=== PATIENT | female | born 1970 | race Caucasian/White ===

== ENCOUNTER 2022-02-15 15:28 | Emergency (ER) | payer BC ==
[2022-02-15 16:17] VITALS: BP 130/77; PULSE 69; RESP 18; TEMP 97.9; BMI 42.9
[2022-02-15 16:40] LABS: ALBUMIN 3.6 g/dl (3.4-5.0); BILIRUBIN,TOTAL 0.5 mg/dl (0.2-1); CALCIUM 9.1 mg/dl (8.5-10); CREATININE 0.7 mg/dl (0.55-1.3); TOT PROT 6.4 g/dl (6.4-8.2)
[2022-02-15 16:52] LABS: HEMATOCRIT 37.1 % (32.4-45.2); HEMOGLOBIN 12.8 G/dL (10.7-15.3); MCH 30.6 pg (25.7-33.7); MCHC 34.6 g/dl (32.0-36.0); MEAN CELL VOLUME 88.4 fl (80-96); MEAN PLT VOLUME 9.8 fl (7.5-11.1); PLATELET COUNT 261.5 10^3/uL (134-434); RDW 15.2 % (11.6-15.6)
[2022-02-15 18:05] LABS: VENOUS BASE EXCESS 2.9 mmol/L (-2-2); VENOUS O2 SATURATION 37.7 % (70-80); VENOUS PCO2 52.7 mmHg (38-52); VENOUS PH 7.359 (7.310-7.410)
[2022-02-15 20:08] LABS: PLATELET ESTIMATE ADEQUATE
== END 2022-02-15 18:28 | disposition home or self-care (01) ==
LOC: FER 15:28
DX: M67.472 Ganglion, left ankle and foot (principal)
CPT/HCPCS: 36415; 71275-TC; 80053; 82803; 84484; 85025; 93005; 93970-TC; 99285-25; Q9967

== ENCOUNTER 2023-10-27 07:33 | Day surgery (SDC) | payer BC ==
[2023-10-21 16:00] VITALS: BMI 42.7
[2023-10-27] MEDS ORDERED: PROPOFOL 40 ML ONE (07:55)
[2023-10-27] MEDS ORDERED: LIDOCAINE HCL/PF 2% SDV 5ML VIAL ONE (07:55)
[2023-10-27] MEDS ORDERED: ONDANSETRON 4 MG/2 ML VIAL ONE (07:55)
[2023-10-27] MEDS ORDERED: DEXAMETHASONE SOD PHOSPHATE 4 MG/1 ML VIAL ONE (07:55)
[2023-10-27] MEDS ORDERED: SUCCINYLCHOLINE CHLORIDE 200 MG/10 ML SYRINGE ONE (07:56)
[2023-10-27] MEDS ORDERED: MIDAZOLAM HCL 2 MG/2 ML SINGLE DOSE VIAL ONE ×2 (07:56→08:45)
[2023-10-27] MEDS ORDERED: EPINEPHrine 1:1,000 1,000 MCG/ML ML ONE (08:08)
[2023-10-27] MEDS ORDERED: BUPIVACAINE HCL/PF 0.25% (2.5MG/ML) 10 ML VIAL ONE (08:08)
[2023-10-27] MEDS ORDERED: FAMOTIDINE 20 MG/50 ML IVPB 20 MG/50 ML MG IVPB ONE (08:19)
[2023-10-27] MEDS ORDERED: ACETAMINOPHEN INJECTION 100 ML IVPB ONE (08:19)
[2023-10-27] MEDS ORDERED: BUPIVACAINE HCL/PF 0.5% (5MG/ML) 10 ML VIAL ONE (08:50)
[2023-10-27] MEDS ORDERED: DEXAMETHASONE SOD PHOSPHATE/PF 10 MG/ML SDV ONE (08:51)
[2023-10-27] MEDS ORDERED: ONDANSETRON 4 MG/2 ML VIAL IVPUSH PRN (10:06)
[2023-10-27] MEDS ORDERED: oxyCODONE HCL 5 MG TABLET PO PRN (10:06)
[2023-10-27] MEDS ORDERED: LACTATED RINGERS SOLUTION 1,000 ML IV SCH (10:15)
[2023-10-27 14:51] VITALS: BP 143/75; PULSE 76; RESP 19; TEMP 97.8
== END 2023-10-27 15:35 | disposition home or self-care (01) ==
LOC: FASU 07:33
PROVIDERS: ATTEND Orthopaedic Surgery Sports Medicine
PROC: 0SBC4ZZ Excision of Right Knee Joint, Percutaneous Endoscopic Approach (ICD-10-PCS; principal; 2023-10-27 09:37)
DX: S83.241A Other tear of medial meniscus, current injury, right knee, initial encounter (principal); M67.51 Plica syndrome, right knee; X58.XXXA Exposure to other specified factors, initial encounter; Y93.9 Activity, unspecified; Y92.9 Unspecified place or not applicable
CPT/HCPCS: 94760; J0131

== ENCOUNTER 2023-12-05 11:42 | Emergency (ER) | payer BC ==
[2023-12-05 12:16] VITALS: BP 153/88; PULSE 81; RESP 16; TEMP 97.9; BMI 43.4
[2023-12-05] MEDS ORDERED: ACETAMINOPHEN INJECTION 100 ML IVPB ONE (12:40)
[2023-12-05 12:47] LABS: HEMATOCRIT 39.2 % (32.4-45.2); HEMOGLOBIN 12.6 G/dL (10.7-15.3); MCH 28.8 pg (25.7-33.7); MCHC 32.1 g/dl (32.0-36.0); MEAN CELL VOLUME 89.7 fl (80-96); MEAN PLT VOLUME 9.9 fl (7.5-11.1); PLATELET COUNT 249.2 10^3/uL (134-434); RBC 4.37 10^6/uL (3.60-5.2); RDW 14.8 % (11.6-15.6); WHITE BLOOD COUNT 7.2 10^3/uL (4.0-10.8)
[2023-12-05] MEDS: SODIUM CHLORIDE 1,000 ML IV STA (12:47)
[2023-12-05] MEDS: ACETAMINOPHEN 1000 MG/100 ML BAG IVPB ONE (12:47)
[2023-12-05 13:04] LABS: ALBUMIN 3.8 g/dl (3.4-5.0); ALK PHOS 79 U/L (45-117); ANION GAP 6 mmol/L (4-13); BILIRUBIN,TOTAL 0.3 mg/dl (0.2-1); CALCIUM 9.2 mg/dl (8.5-10.1); CHLORIDE 105 mmol/L (98-107); CO2 30 mmol/L (21-32); CREATININE 0.7 mg/dl (0.6-1.3); GLUCOSE,RANDOM 118 mg/dl (74-106); POTASSIUM 4.2 mmol/L (3.5-5.1); SGOT/AST 22 U/L (15-37); SGPT/ALT 24 U/L (7-52); SODIUM 141 mmol/L (136-145); TOT PROT 6.1 g/dl (6.4-8.2)
[2023-12-05 14:22] LABS: ERYTHROCYTE SEDIMENTATION RATE 34 mm/hr (0-30)
[2023-12-05] MEDS ORDERED: LIDOCAINE 5% TOPICAL PATCH ONE (15:07)
[2023-12-05] MEDS: LIDOCAINE 5% TOPICAL PATCH TP ONE (15:14)
[2023-12-05] MEDS ORDERED: LIDOCAINE PATCH REMOVAL MC SCH (22:00)
== END 2023-12-05 15:15 | disposition home or self-care (01) ==
LOC: FER 11:42
PROC: 3E033NZ Introduction of Analgesics, Hypnotics, Sedatives into Peripheral Vein, Percutaneous Approach (ICD-10-PCS; principal; 2023-12-05)
PROC: 3E0337Z Introduction of Electrolytic and Water Balance Substance into Peripheral Vein, Percutaneous Approach (ICD-10-PCS; 2023-12-05)
DX: J02.9 Acute pharyngitis, unspecified (principal); R13.10 Dysphagia, unspecified; M62.838 Other muscle spasm; G44.209 Tension-type headache, unspecified, not intractable
CPT/HCPCS: 36415; 70481-TC; 80053; 85027; 85651; 86140; 87040; 99285-25; J0131; Q9967